=== PATIENT | male | born 1975 | race American Indian/Alaskan Native ===

== ENCOUNTER 2017-04-06 16:24 | Emergency (ER) | payer OTHER ==
[2017-04-06] MEDS ORDERED: MOTRIN PO ONE (19:25)
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
--- NOTE | 2017-04-06 20:40 | XRay Report ---
FINAL REPORT EXAM: XR CHEST ROUTINE 2V HISTORY: chest pain TECHNIQUE: PA and lateral views of the chest PRIORS: None. FINDINGS: Lines, tubes, and devices: N/A Lungs and pleura: Trachea is normal in position. Mild increased markings in the left lung base are noted. Findings are suspicious for mild infiltrate, likely in the lingula on the lateral film. There is no evidence for pleural effusion, vascular congestion, or pneumothorax. Cardiomediastinal silhouette: Cardiac and mediastinal silhouettes are unremarkable. Other: Bony structures are intact. IMPRESSION: Mild infiltrate in the left base, likely in the lingula.
[2017-04-06 20:48] LABS: Creatine Kinase MB 1.5 ng/mL (0.0-4.0)
[2017-04-06 20:49] LABS: Anion Gap 20 mmol/L; Basophils % (Auto) 0.4 % (0.0-1.8); Blood Urea Nitrogen 18 mg/dL (9-20); Carbon Dioxide 25 mmol/L (22-30); Chloride 99.8 mmol/L (98-107); Creatine Kinase 336 units/L (55-170); Eosinophils % (Auto) 0.8 % (0.0-4.3); Glucose 104 mg/dL (75-100); Hematocrit 43.3 % (35.5-45.6); Hemoglobin 14.8 gm/dl (11.8-15.2); Mean Corpuscular HGB Conc 34 % (32-34); Mean Corpuscular Hemoglobin 29 pg (28-32); Mean Corpuscular Volume 84 fl (84-94); Platelet Count 125 K/mm3 (140-440); Potassium 4.4 mmol/L (3.6-5.0); Red Blood Count 5.16 M/mm3 (3.65-5.03); Red Cell Distribution Width 14.2 % (13.2-15.2); Sodium 140 mmol/L (137-145); White Blood Count 9.2 K/mm3 (4.5-11.0)
[2017-04-06 20:53] LABS: Bilirubin,Urine NEG (Negative); Blood,Urine NEG (Negative); Ketones,Urine NEG (Negative); Leukocyte Esterase,Urine SM (Negative); Mucus,Urine FEW /HPF; Nitrite,Urine NEG (Negative); Protein,Urine <15 mg/dL mg/dL (Negative); Urobilinogen,Urine < 2.0 mg/dL (<2.0)
[2017-04-06 21:16] VITALS: BP 138/86
== END 2017-04-06 21:32 | disposition home or self-care (01) ==
LOC: ED 16:24
DX: S66.911A Strain of unspecified muscle, fascia and tendon at wrist and hand level, right hand, initial encounter (principal); S13.4XXA Sprain of ligaments of cervical spine, initial encounter; J18.9 Pneumonia, unspecified organism; V89.2XXA Person injured in unspecified motor-vehicle accident, traffic, initial encounter; Y93.89 Activity, other specified; Y99.8 Other external cause status; Y92.89 Other specified places as the place of occurrence of the external cause
CPT/HCPCS: 36415; 71020; 80048; 81001; 82550; 82553; 84484; 85025; 93005; 93010; 99284